=== PATIENT | female | born 1965 | race Caucasian/White ===

== ENCOUNTER 2017-11-03 06:57 | Day surgery (SDC) | payer MEDICARE, OTHER ==
[~2017-11-03 06:57] MED LIST: Lactated Ringers 1,000 ML IV SCH; Lidocaine 1%/Sod Bicarbonate in NS 8.4% 1 ML Syringe IDERM PRN; Sodium Chloride 0.9% 10 ML Syringe FLUSH PRN
[2017-11-03] MEDS ORDERED: Ropivacaine 0.5% 5 MG/ML 30 ML SDV ONE (07:10)
[2017-11-03] MEDS ORDERED: Lidocaine 1% 4 ML ONE ×2 (07:10→07:56)
[2017-11-03] MEDS ORDERED: EPINEPHrine 1 MG/ML SDV ONE (07:10)
[2017-11-03] MEDS ORDERED: Triamcinolone Acetonide 40 MG/ML 1 ML MDV ONE (07:18)
[2017-11-03] MEDS ORDERED: Bupivacaine 0.25% 30 ML SDV ONE (07:19)
--- NOTE | 2017-11-03 07:33 | PCM.PREANE ---
Preanesthetic Assessment - Anesthesia/Transfusion/Family Hx Anesthesia History: Prior Anesthesia Without Reaction Family History of Anesthesia Reaction: No Transfusion History: No Prior Transfusion(s) Intubation History: Unknown - Review of Systems General: No Symptoms Pulmonary: No Symptoms (Former smoker quit in 2007) Cardiovascular: No Symptoms (History of HTN), Palpitations (with hypoglycemia) Gastrointestinal: No Symptoms Neurological: No Symptoms, Numbness (right hand with right shoulder pain) Other: Reports: None, Diabetes (AM blood sugar at [id number]/insulin pump noted and operating) - Physical Assessment NPO Status Date: 11/02/17 NPO Status Time: 18:00 Pulse: 68 O2 Sat by Pulse Oximetry: 98 Respiratory Rate: 16 Blood Pressure: 107/70 Temperature: 37.1 C Height: 1.63 m Weight: 64 kg ASA Class: 2 Mental Status: Alert & Oriented x3 Airway Class: Mallampati = 3 Dentition: Reports: Partial (upper) Thyro-Mental Finger Breadths: 3 Mouth Opening Finger Breadths: 3 ROM/Head Extension: Full Lungs: Clear to Auscultation, Normal Respiratory Effort Cardiovascular: Regular Rate, Regular Rhythm, No Murmurs - Lab Values: Lab values reviewed and noted and within acceptable ranges to proceed with scheduled procedure. - Imaging/EKG Impressions: EKG: SR rate= 69 - Allergies Allergies/Adverse Reactions: Allergies Allergy/AdvReac Type Severity Reaction Status Date / Time adhesive Allergy Redness Verified 11/02/17 15:34 bupropion [From Zyban] Allergy Hives Verified 11/02/17 15:34 codeine Allergy Itching Verified 11/02/17 15:34 gabapentin [From Neurontin] Allergy Confusion Verified 11/02/17 15:34 tramadol Allergy Nausea and Verified 11/02/17 15:34 Vomiting dyes Allergy Anaphylactic Uncoded 11/02/17 15:34 Shock - Anesthesia Plan Pre-Op Medication Ordered: None - Acknowledgements Anesthesia Type Planned: General Anesthesia (Right interscalene block under US guidance for post operative pain control requested by Dr. Alarcon.), MAC Pt an Appropriate Candidate for the Planned Anesthesia: Yes Alternatives and Risks of Anesthesia Discussed w Pt/Guardian: Yes Pt/Guardian Understands and Agrees with Anesthesia Plan: Yes PreAnesthesia Questionnaire HEENT History: Reports: Impaired Vision, Other (See Below) Other HEENT History: glasses Cardiovascular History: Reports: None Respiratory History: Reports: None Gastrointestinal History: Reports: None Genitourinary History: Reports: None EGG SORTER History: Reports: None Musculoskeletal History: Reports: Other (See Below) Other Musculoskeletal History: left shoulder pain, frozen, ganglion cyst Neurological History: Reports: None Psychiatric History: Reports: None Endocrine/Metabolic History: Reports: Diabetes, Type I Hematologic History: Reports: None Immunologic History: Reports: None Oncologic (Cancer) History: Reports: None Dermatologic History: Reports: None - Past Surgical History Head Surgeries/Procedures: Reports: None Cardiovascular Surgical History: Reports: None Respiratory Surgical History: Reports: None GI Surgical History: Reports: Colonoscopy, EGD Female Surgical History: Reports: Breast Implant, Hysterectomy Male Surgical History: Reports: None Endocrine Surgical History: Reports: None Neurological Surgical History: Reports: None Musculoskeletal Surgical History: Reports: None Oncologic Surgical History: Reports: None Dermatological Surgical History: Reports: None - SUBSTANCE USE Smoking Status *Q: Former Smoker Recreational Drug Use History: No - HOME MEDS Home Medications: Home Meds Aspirin 81 mg PO DAILY 11/02/17 [History] Cetirizine [ZyrTEC] 10 mg PO DAILY 11/02/17 [History] Insulin Aspart [NovoLOG] 1 dose SQ ASDIRECTED 11/02/17 [History] Lisinopril 40 mg PO DAILY 11/02/17 [History] Acetaminophen/HYDROcodone [[place] 325-5 MG] 1 - 2 tab PO Q6H PRN #40 tablet 11/03 [Rx] - CURRENT (IN HOUSE) MEDS Current Meds: Current Medications Epinephrine HCl (Adrenalin) 3 mg IV ONETIME ONE Stop: 11/03/17 08:01 Lactated Ringer's (Ringers, Lactated) 1,000 mls @ 125 mls/hr IV ASDIRECTED MANASA Lidocaine/Sodium Bicarbonate (Buffered Lidocaine 1% In Ns 8.4%) 0.25 ml IDERM ONETIME PRN PRN Reason: Prior to IV Start Sodium Chloride (Saline Flush) 10 ml FLUSH ASDIRECTED PRN PRN Reason: Keep Vein Open Discontinued Medications Bupivacaine HCl (Marcaine 0.25%) Confirm Administered Dose 30 ml .ROUTE .STK- MED ONE Stop: 11/03/17 07:20 Epinephrine HCl (Adrenalin) Confirm Administered Dose 1 mg .ROUTE .STK-MED ONE Stop: 11/03/17 07:11 Lidocaine HCl (Xylocaine-Mpf 1%) Confirm Administered Dose 4 mls @ as directed .ROUTE .STK-MED ONE Stop: 11/03/17 07:11 Ropivacaine (Naropin 0.5%) Confirm Administered Dose 30 ml .ROUTE .STK-MED ONE Stop: 11/03/17 07:11 Triamcinolone Acetonide (Kenalog-40) Confirm Administered Dose 80 mg .ROUTE .STK -MED ONE Stop: 11/03/17 07:19
[2017-11-03] MEDS ORDERED: Propofol 200 MG/20 ML SDV ONE (07:56)
[2017-11-03] MEDS ORDERED: fentaNYL 100 MCG/2 ML SDV ONE (07:57)
[2017-11-03] MEDS ORDERED: Midazolam 1 MG/ML 2 ML SDV ONE (07:57)
[2017-11-03] MEDS ORDERED: EPINEPHrine 1 MG/ML 30 ML MDV IV ONE (08:00)
[2017-11-03] MEDS ORDERED: Ketamine 500 mg/10 ML MDV ONE (09:02)
--- NOTE | 2017-11-03 09:23 | PCM48HPAN ---
Post Anesthesia Note - EVALUATION WITHIN 48HRS OF ANESTHETIC Vital Signs in Normal Range: Yes Patient Participated in Evaluation: Yes Respiratory Function Stable: Yes Airway Patent: Yes Cardiovascular Function Stable: Yes Hydration Status Stable: Yes Pain Control Satisfactory: Yes Nausea and Vomiting Control Satisfactory: Yes Mental Status Recovered: Yes Pulse Rate: 79 SaO2: 97 Resp Rate: 12 Temperature: 37.1 C Blood Pressure: 136/74 - COMMENTS/OBSERVATIONS Free Text/Narrative:: no anesthesia complications noted
--- NOTE | 2017-11-03 12:53 | PCM.SN ---
- Free Text/Narrative Note: Anesthesia Note: (Right Interscalene Block Note) Date: 11/03/2017 Time Out: 804 Start: 804 Stop: 829 Surgical Procedure: Right Shoulder Manipulation with Steroid Injection Diagnosis Right Shoulder Adhesive Capsulitis Current Procedure: Right interscalene block under US guidance for postoperative pain control requested by Dr. Alarcon. Patient chart reviewed, risk/benefits discussed with patient, consent obtained. Patient positioned supine, monitors/alarms on, oxygen placed via nasal cannula at 2 LPM. IV sedation administered: (Please refer to Nursing notes for times of versed and fentanyl administration.) Right shoulder prepped with two chloropreps. Sterile drapes placed with aseptic technique noted. Under US guidance, right subclavian artery visualized along with the right brachial plexus. Plexus followed up to C6 cricoid level, and area localized with 2mls of 1% lidocaine. 22gauge 2 inch stimiplex needle advanced under US with 0.6mV with stimulation of biceps noted. Good stimulation noted with decreased voltage and absent at 0.2mVs. 1ml of Normal Saline injected with loss of stimulation noted to confirm needle not placed intraneurally. Incremental dosing of 5mls with negative aspiration noted prior to each injection of 0.5% ropivacaine with 1:200,000 epinephrine. Total volume=30mls. Please refer to nurses noted for vital signs. Abby De La Rosa CRNA
--- NOTE | 2017-11-05 08:47 | PCM.OPNOTE ---
- General Post-Op/Procedure Note Date of Surgery/Procedure: 11/03/17 Operative Procedure(s): manipulation under anesthesia of right shoulder with intra-articular glenohumeral corticosteroid injection Pre Op Diagnosis: adhesive capsulitis right shoulder Post-Op Diagnosis: Same Anesthesia Technique: MAC, Regional Block Primary Surgeon: Jose Alarcon Anesthesia Provider: Iker Key Reporting Specialist: Shantal Ruiz EBL in mLs: 0 Complications: None Condition: Good
--- NOTE | 2017-11-05 09:34 | OR ---
DATE OF OPERATION: 11/03/2017 SURGEON: Jose Alarcon MD OPERATION PERFORMED: Manipulation under anesthesia of the right shoulder with intra-articular glenohumeral corticosteroid injection. PREOPERATIVE DIAGNOSIS: Adhesive capsulitis, right shoulder. POSTOPERATIVE DIAGNOSIS: Adhesive capsulitis, right shoulder. ANESTHESIA: MAC with regional interscalene block. ANESTHESIA PROVIDER: Iker Key CRNA. DRUPAL WEB DEVELOPER: None. COMPLICATIONS: None. ESTIMATED BLOOD LOSS: Not applicable. CONDITION: Stable. DESCRIPTION OF PROCEDURE: The patient was identified in the preop holding area. Proper site was marked and identified by the surgeon. The patient was taken back to the operating theater where after adequate anesthesia, preliminary results showed only roughly 10 degrees of external rotation. At 90 degrees of abduction, she did have 140 degrees of forward elevation. At this time, shoulder was manipulated, and by the end of manipulation, the patient had 70 degrees of external rotation, 180 degrees of abduction and forward flexion. At this time, under sterile technique, 2 mL of 40 mg Kenalog and 4 mL of 0.25% Marcaine were injected to the right glenohumeral joint. The patient tolerated the procedure well and was sent to the PACU in stable condition. MMODAL /[id number]
== END 2017-11-03 10:30 | disposition home or self-care (01) ==
LOC: JD.SDS 06:57
PROVIDERS: ATTEND Orthopaedic Surgery
DX: M75.01 Adhesive capsulitis of right shoulder (principal); E11.9 Type 2 diabetes mellitus without complications; I10 Essential (primary) hypertension; Z88.5 Allergy status to narcotic agent; Z88.8 Allergy status to other drugs, medicaments and biological substances; Z91.048 Other nonmedicinal substance allergy status; Z87.891 Personal history of nicotine dependence
CPT/HCPCS: 93005; J0171; J2001; J2250; J2704; J2795; J3010; J3301; J3490; J7120

== ENCOUNTER 2019-06-06 09:51 | Day surgery (SDC) | payer BC, MEDICARE ==
[2019-06-06] MEDS ORDERED: Ondansetron 4 MG/2 ML SDV IVPUSH PRN (10:12)
--- NOTE | 2019-06-06 10:20 | PCM.PREANE ---
Preanesthetic Assessment - Procedure Proposed Procedure: EGD with colonoscopy - Anesthesia/Transfusion/Family Hx Anesthesia History: Prior Anesthesia Without Reaction Family History of Anesthesia Reaction: No Transfusion History: No Prior Transfusion(s) Intubation History: Unknown Additional History: No previous difficulties with anesthesia except PONV. No previous difficulties with intubation that are known. - Review of Systems General: No Symptoms Pulmonary: No Symptoms Cardiovascular: No Symptoms Gastrointestinal: No Symptoms Neurological: No Symptoms Other: Reports: None - Physical Assessment NPO Status Date: 06/06/19 NPO Status Time: 02:00 (Needed a carb loaded drink to prevent hypoglycemia) Vital Signs: Taken by RN on admission Height: 64 ft Weight: 61.68 kg ASA Class: 2 Mental Status: Alert & Oriented x3 Airway Class: Mallampati = 2 Dentition: Reports: Normal Dentition, Edentulous (upper plate) Thyro-Mental Finger Breadths: 3 Mouth Opening Finger Breadths: 3 ROM/Head Extension: Full Lungs: Clear to Auscultation, Normal Respiratory Effort Cardiovascular: Regular Rate, Regular Rhythm - Allergies Allergies/Adverse Reactions: Allergies Allergy/AdvReac Type Severity Reaction Status Date / Time bupropion [From Zyban] Allergy Hives Verified 06/05/19 12:06 codeine Allergy Itching Verified 06/05/19 12:06 gabapentin [From Neurontin] Allergy Confusion Verified 06/05/19 12:06 Iodinated Contrast Media Allergy Anaphylactic Verified 06/05/19 12:06 Shock Cyubchy-Gmk-Ypk Reductase Allergy Muscle Verified 06/05/19 12:06 Inhibitor Aches tramadol Allergy Nausea and Verified 06/05/19 12:06 Vomiting - Acknowledgements Anesthesia Type Planned: MAC Pt an Appropriate Candidate for the Planned Anesthesia: Yes Alternatives and Risks of Anesthesia Discussed w Pt/Guardian: Yes Pt/Guardian Understands and Agrees with Anesthesia Plan: Yes PreAnesthesia Questionnaire HEENT History: Reports: Impaired Vision, Other (See Below) Other HEENT History: glasses Cardiovascular History: Reports: Hypertension Respiratory History: Reports: None Gastrointestinal History: Reports: None, Chronic Diarrhea Genitourinary History: Reports: None BLACKJACK PIT BOSS History: Reports: None Musculoskeletal History: Reports: Other (See Below) Other Musculoskeletal History: ganglion cyst Neurological History: Reports: None Psychiatric History: Reports: None Endocrine/Metabolic History: Reports: Diabetes, Type I Hematologic History: Reports: None Immunologic History: Reports: None Oncologic (Cancer) History: Reports: None Dermatologic History: Reports: None - Past Surgical History Head Surgeries/Procedures: Reports: None Cardiovascular Surgical History: Reports: None Respiratory Surgical History: Reports: None GI Surgical History: Reports: Colonoscopy, EGD Female Surgical History: Reports: Breast Implant, Hysterectomy Male Surgical History: Reports: None Endocrine Surgical History: Reports: None Neurological Surgical History: Reports: None Musculoskeletal Surgical History: Reports: Other (See Below) Other Musculoskeletal Surgeries/Procedures:: bilateral shoulder manipulations for "frozen shoulders" Oncologic Surgical History: Reports: None Dermatological Surgical History: Reports: None - SUBSTANCE USE Smoking Status *Q: Former Smoker Recreational Drug Use History: No - HOME MEDS Home Medications: Home Meds Aspirin 81 mg PO DAILY 11/02/17 [History] Cetirizine [ZyrTEC] 10 mg PO DAILY 11/02/17 [History] Lisinopril 40 mg PO DAILY 11/02/17 [History] Colestipol [Colestipol HCl] 2 g PO BID 06/05/19 [History] Insulin Aspart (Niacinamide) [Fiasp Penfill 100 Unit/ml Cart] 1 dose SQ TID PRN 06/05/19 [History] Insulin Degludec [Tresiba] 12 units SQ QAM 06/05/19 [History] Lactobacillus Combination No.4 [Probiotic] 1 cap PO DAILY 06/05/19 [History] Melatonin 10 mg PO BEDTIME 06/05/19 [History] Red Yeast Rice 600 mg PO DAILY 06/05/19 [History] - CURRENT (IN HOUSE) MEDS Current Meds: Current Medications Lactated Ringer's (Ringers, Lactated) 1,000 mls @ 125 mls/hr IV ASDIRECTED MANASA Stop: 06/06/19 23:00 Lidocaine/Sodium Bicarbonate (Buffered Lidocaine 1% In Ns 8.4%) 0.25 ml IDERM ONETIME PRN PRN Reason: Prior to IV Start Stop: 06/06/19 18:00 Ondansetron HCl (Zofran) 4 mg IVPUSH ONETIME PRN PRN Reason: Nausea/Vomiting Stop: 06/06/19 14:00 Sodium Chloride (Saline Flush) 10 ml FLUSH ASDIRECTED PRN PRN Reason: Keep Vein Open Stop: 06/06/19 18:00
[2019-06-06] MEDS ORDERED: fentaNYL 100 MCG/2 ML SDV ONE (10:42)
[2019-06-06] MEDS ORDERED: Propofol 200 MG/20 ML SDV ONE ×2 (10:42→11:23)
[2019-06-06] MEDS ORDERED: Ketamine 500 mg/10 ML MDV ONE (10:42)
[2019-06-06] MEDS ORDERED: Lidocaine 1% 4 ML ONE (10:42)
--- NOTE | 2019-06-06 11:43 | PCM.OPNOTE ---
- General Post-Op/Procedure Note Date of Surgery/Procedure: 06/06/19 Operative Procedure(s): EGD and colonoscopy Findings: 1. Gastritis 2. Duodenitis 3. Duodenal polyp 4. Diffuse colitis Pre Op Diagnosis: abdominal pain and diarrhea Post-Op Diagnosis: same Anesthesia Technique: ELICIA Primary Surgeon: Nadine Perez Anesthesia Provider: Franky Rojas Pathology: 1. Duodenal polyp biopsy 2. Duodenitis biopsy 3. Gastric antrum for H. pylori 4. Ascending colon biopsy 5. Transverse colon biopsy 6. Descending colon biopsy 7. Sigmoid colon biopsy 8. Rectal biopsy Fluid Replacement, Intraop: 800 EBL in mLs: 0 Complications: None apparent Condition: Good
--- NOTE | 2019-06-06 11:45 | PCM.POSTAN ---
POST ANESTHESIA ASSESSMENT - MENTAL STATUS Mental Status: Somnolent - VITAL SIGNS Vital Signs: Last Vital Signs Temp 36.7 C 06/06/19 09:55 Pulse 67 06/06/19 09:55 Resp 16 06/06/19 09:55 BP 124/82 06/06/19 09:55 Pulse Ox 98 06/06/19 09:55 - RESPIRATORY Respiratory Status: Respiratory Rate WNL, Airway Patent, O2 Saturation Stable - CARDIOVASCULAR CV Status: Pulse Rate WNL, Blood Pressure Stable - GASTROINTESTINAL GI Status: No Symptoms - PAIN Free Text/Narrative:: Unable to assess at this time. Responsive to painful stimuli. - POST OP HYDRATION Hydration Status: Adequate & Stable - OBSERVATIONS Free Text/Narrative:: Routine MAC. Transfer to recovery. Handoff to RN. VSS, SV, somnolent, but responsive to painful stimuli. No concerns at this time.
[2019-06-06] MEDS ORDERED: Midazolam 1 MG/ML 2 ML SDV ONE (11:57)
--- NOTE | 2019-06-06 11:58 | PCM.PRNOTE ---
- Free Text/Narrative Note: Operative Report Date of Procedure: June 06, 2019 Pre Op Diagnosis: Abdominal pain and diarrhea Post-Op Diagnosis: Same Operative Procedures: 1. EGD with biopsy 2. Colonoscopy to the cecum with biopsy Primary Surgeon: Nadine Perez MD Anesthesia Provider: Nicola Rojas CRNA Anesthesia Technique: MAC IV Fluid Replacement, Intraop: 800cc crystalloid Output, Urine Amount: 0cc EBL in mLs: 0cc Findings: 1. Gastritis 2. Duodenitis 3. Duodenal polyp 4. Diffuse colitis Specimens: 1. Duodenal polyp biopsy 2. Duodenitis biopsy 3. Gastric antrum for H. pylori 4. Ascending colon biopsy 5. Transverse colon biopsy 6. Descending colon biopsy 7. Sigmoid colon biopsy 8. Rectal biopsy Drain/Tubes: None Indication: The patient is a 54-year-old lady who presented to the clinic with abdominal pain and diarrhea. The patient reported symptoms of frequent diarrhea throughout the day and abdominal pain after eating. She had stool studies completed which were unrevealing for any etiology. The patient was consented for a diagnostic EGD and colonoscopy. Risks of bleeding, and perforation were discussed, and the patient agreed to the risks and wished to proceed. Description of the procedure: The patient was taken back to the endoscopy suite, and placed in the left lateral decubitus position. Local anesthetic to the oropharynx was administered , and a bite block was placed. The patient was sedated with MAC anesthesia. The Olympus video endoscope was inserted into the oropharynx and guided under direct vision into the esophagus, stomach, and duodenum. The gastric antrum was inspected and cold biopsy forceps were used to take tissue samples for H. pylori. The duodenal bulb and second portion of the duodenum showed evidence of inflammation. There was a small polyp measuring approximate 4 mm and the second portion of the duodenum, there was overlying redundant mucosa. Cold biopsy forceps ere used to take a biopsy of this tissue. The scope was withdrawn to the stomach and retroflexed. There was bilious fluid residual in the stomach which was suctioned. He was gastritis in the fundus and cardia with stigmata of recent bleeding No erosions or ulcers were noted. The scope was withdrawn to the esophagus. No Barretts esophagus changes were noted. The endoscope was then withdrawn Next, anorectal examination was performed. No lesions, masses or hemorrhoids were noted externally or on palpation. The scope was placed into the rectum and advanced to cecum. Upon reaching the cecum, and the patients cecum was entered. There was moderate tortuosity of the colon wearing external abdominal pressure to reach the cecum. The ileocecal valve was well visualized and the appendiceal orifice identified. At this point, the scope was slowly withdrawn, paying attention to the mucosa. The patient had excellent bowel prep, 95% of the mucosa was visible. Diffuse colitis marked by areas of small petechia, erythema and flattening of the mucosal surface from edema was noted throughout the colon. Random colon biopsies were taken with cold biopsy forceps in the ascending colon, transverse colon, descending colon, sigmoid colon, and rectum. In the rectum, scope was retroflexed and some normal appearing hemorrhoidal tissue was noted. The scope was placed back in the lumen and excess air was aspirated. The scope was removed. The patient tolerated the procedure very well. Complications: None apparent Condition: The patient was transported to PACU in stable condition. Nadine Perez MD General Surgery
--- NOTE | 2019-06-07 09:45 | PCM48HPAN ---
Post Anesthesia Note - EVALUATION WITHIN 48HRS OF ANESTHETIC Vital Signs in Normal Range: Yes Patient Participated in Evaluation: Yes Respiratory Function Stable: Yes Airway Patent: Yes Cardiovascular Function Stable: Yes Hydration Status Stable: Yes Pain Control Satisfactory: Yes Nausea and Vomiting Control Satisfactory: Yes Mental Status Recovered: Yes Vital Signs: Last Vital Signs Temp 36.1 C 06/06/19 13:20 Pulse 63 06/06/19 13:20 Resp 16 06/06/19 13:20 BP 126/69 06/06/19 13:20 Pulse Ox 98 06/06/19 13:20 - COMMENTS/OBSERVATIONS Free Text/Narrative:: Patient had dysphoria upon initial emergence from MAC anesthetic. Administered 2 mg divided doses of midazolam to make sure she remained amnestic and allowed her to wake-up a second time. This time she emerged much more pleasantly. Unsure which agent(s) caused this. Typically, low dose ketamine doesn't cause this, but it's certainly possible, but so too are any of the agents we used.
== END 2019-06-06 13:35 | disposition home or self-care (01) ==
LOC: JD.SDS 09:51
PROVIDERS: ATTEND Surgery
DX: K52.832 Lymphocytic colitis (principal); K29.80 Duodenitis without bleeding; K29.50 Unspecified chronic gastritis without bleeding; B96.81 Helicobacter pylori [H. pylori] as the cause of diseases classified elsewhere; E13.9 Other specified diabetes mellitus without complications; Z91.041 Radiographic dye allergy status; Z79.899 Other long term (current) drug therapy; Z79.82 Long term (current) use of aspirin; Z79.4 Long term (current) use of insulin; Z88.8 Allergy status to other drugs, medicaments and biological substances; Z88.5 Allergy status to narcotic agent; Z87.891 Personal history of nicotine dependence
CPT/HCPCS: 00813; 82962; J2001; J2704; J3010; J7120

== ENCOUNTER 2019-09-24 12:07 | Emergency (ER) | payer BC, MEDICARE ==
[2019-09-24] MEDS ORDERED: Ondansetron 4 MG/2 ML SDV IVPUSH ONE (12:55)
[2019-09-24] MEDS ORDERED: HYDROmorphone 0.5 MG/0.5 ML Syringe IVPUSH ONE (12:55)
[2019-09-24] MEDS ORDERED: Tamsulosin 0.4 MG Cap.ER PO ONE (12:55)
[2019-09-24] MEDS ORDERED: Ketorolac 30 MG/ML SDV IVPUSH STA (12:55)
[2019-09-24] MEDS ORDERED: Sodium Chloride 0.9% 1,000 ML IV SCH (13:00)
--- NOTE | 2019-09-24 13:01 | EDM.PDOC ---
ED HPI GENERAL MEDICAL PROBLEM - General Chief Complaint: Genitourinary Problem Stated Complaint: LEFT SIDE BACK PAIN/HIGH BP Time Seen by Provider: 09/24/19 12:31 Source of Information: Reports: Patient History Limitations: Reports: No Limitations - History of Present Illness INITIAL COMMENTS - FREE TEXT/NARRATIVE: Mrs. Woody is a pleasant 54-year-old woman with a past medical history significant for type 1 diabetes and untreated dyslipidemia, who now presents to the ED stating that she developed dysuria with urinary frequency about 2 weeks ago. Her symptoms are similar to a UTI that she has had in the past. Her blood pressure has also been elevated for couple of weeks. She states that she was seen by her PCP last week, where a urinalysis was reportedly negative. Metoprolol was added to her usual lisinopril, however, her BP has remained elevated. She then developed left flank pain that radiates to her left lower quadrant this morning. She is unable to describe the character of the pain, other than "it hurts". She states that it is constant, although she occasionally gets a wave of increased pain that lasts a few minutes. She has not identified any modifiers. No prior similar left flank/left lower quadrant pain. The patient states that she has had slight nausea with the pain, although no recent vomiting. She denies recent fever, chills, sore throat, ear pain, nasal or sinus congestion, cough, dyspnea, chest pain, palpitations, constipation, diarrhea, recent weight gain or weight loss, recent bloody bowel movements or black bowel movements, recent joint aches, headaches, or rashes. Here in the ED, the patient's initial BP is found to be elevated at 181/96, otherwise, she is hemodynamically stable, afebrile, saturating 100% on room air. The patient states that her blood glucoses are usually in the 200s, however, over the past couple of weeks they have been into the 300s. The patient's PCP is Deanne Snider NP. Her Orthopedic Surgeon is Dr. Jose Alarcon. Left Flank Pain Score (Numeric/FACES): 6 - Related Data Allergies Allergy/AdvReac Type Severity Reaction Status Date / Time bupropion [From Zyban] Allergy Severe Hives Verified 09/24/19 12:36 codeine Allergy Severe Itching Verified 09/24/19 12:36 Iodinated Contrast Media Allergy Severe Anaphylactic Verified 09/24/19 12:36 Shock gabapentin [From Neurontin] AdvReac Severe Confusion Verified 09/24/19 12:36 Dhoozbs-[facility]-Wci Reductase AdvReac Severe Muscle Verified 09/24/19 12:36 Inhibitor Aches tramadol AdvReac Severe Nausea and Verified 09/24/19 12:36 Vomiting Home Meds: Home Meds Aspirin 81 mg PO DAILY 11/02/17 [History] Cetirizine [ZyrTEC] 10 mg PO DAILY 11/02/17 [History] Lisinopril 40 mg PO DAILY 11/02/17 [History] Colestipol [Colestipol HCl] 2 g PO BID 06/05/19 [History] Insulin Aspart (Niacinamide) [Fiasp Penfill 100 Unit/ml Cart] 1 dose SQ TID PRN 06/05/19 [History] Insulin Degludec [Tresiba] 12 units SQ QAM 06/05/19 [History] Lactobacillus Combination No.4 [Probiotic] 1 cap PO DAILY 06/05/19 [History] Melatonin 10 mg PO BEDTIME 06/05/19 [History] Red Yeast Rice 600 mg PO DAILY 06/05/19 [History] Acetaminophen/HYDROcodone [Greenview 325-5 MG] 1 - 2 tab PO Q6H PRN #20 tablet 09/23 [Rx] Ondansetron [Zofran ODT] 1 tab PO Q8H PRN #10 tab.dis 09/24/19 [Rx] levoFLOXacin [Levaquin] 1 tab PO QPM #6 tab 09/24/19 [Rx] Past Medical History HEENT History: Reports: Impaired Vision Other HEENT History: wears glasses Cardiovascular History: Reports: High Cholesterol (untreated), Hypertension Endocrine/Metabolic History: Reports: Diabetes, Type I - Past Surgical History HEENT Surgical History: Reports: Oral Surgery (wisdom teeth extraction) GI Surgical History: Reports: Colonoscopy (x 2), EGD (x 2) Female Surgical History: Reports: Breast Implant, D&C (x 1), Hysterectomy ( partial), Tubal Ligation Musculoskeletal Surgical History: Reports: Ganglion Cyst (excised from left wrist & right foot), Shoulder Surgery (bilateral manipulaton for adhesive capsulitis) Social & Family History - Tobacco Use Smoking Status *Q: Former Smoker Years of Tobacco use: 25 Packs/Tins Daily: 1.5 Month/Year Tobacco Last Used: Quit 2007 Second Hand Smoke Exposure: No - Caffeine Use Caffeine Use: Reports: Coffee - Alcohol Use Alcohol Use History: No - Recreational Drug Use Recreational Drug Use: No - Living Situation & Occupation Living situation: Reports: , with Spouse Occupation: Unemployed ED ROS GENERAL - Review of Systems Review Of Systems: Comprehensive ROS is negative, except as noted in HPI. ED EXAM, RENAL/ - Physical Exam Exam: See Below Exam Limited By: No Limitations General Appearance: Alert, WD/WN, No Apparent Distress Eye Exam: Bilateral Eye: EOMI, Normal Inspection Ears: Normal External Exam, Hearing Grossly Normal Nose: Normal Inspection Throat/Mouth: Normal Inspection, Normal Lips, Normal Voice, No Airway Compromise Head: Atraumatic, Normocephalic Neck: Normal Inspection, Full Range of Motion Respiratory/Chest: No Respiratory Distress, Lungs Clear, Normal Breath Sounds, No Accessory Muscle Use Cardiovascular: Normal Peripheral Pulses, Regular Rate, Rhythm, No Edema, No Gallop, No JVD, No Murmur, No Rub GI/Abdominal: Normal Bowel Sounds, Soft, No Organomegaly, No Distention, No Abnormal Bruit, No Mass, Tender (Left lower quadrant, but unclear if truly tender in the left lower quadrant versus identifying pain in the left lower quadrant) (Female) Exam: Deferred Rectal (Female) Exam: Deferred Back Exam: Normal Inspection, Full Range of Motion, CVA Tenderness (L). No: CVA Tenderness (R) Extremities: Normal Inspection, Normal Range of Motion, No Pedal Edema, Normal Capillary Refill Neurological: Alert, Oriented, Normal Cognition, No Motor/Sensory Deficits Psychiatric: Normal Affect Skin Exam: Warm, Dry, Intact, Normal Color, No Rash Course - Vital Signs Last Recorded V/S: Last Vital Signs Temp 36.8 C 09/24/19 12:32 Pulse 73 09/24/19 12:32 Resp 16 09/24/19 12:32 BP 181/96 H 09/24/19 12:32 Pulse Ox 100 09/24/19 12:32 - Orders/Labs/Meds Orders: Active Orders 24 hr Category Date Time Status Strain Urine [RC] ASDIRECTED Care 09/24/19 13:22 Active CULTURE URINE [RM] Stat Lab 09/24/19 12:20 Received Sodium Chloride 0.9% [Normal Saline] 1,000 ml Med 09/24/19 13:00 Active IV ASDIRECTED Medication Orders Sodium Chloride (Normal Saline) 1,000 mls @ 150 mls/hr IV ASDIRECTED MANASA Last Admin: 09/24/19 13:21 Dose: 150 mls/hr Labs: Laboratory Tests 09/24/19 Range/Units 12:20 Urine Color Light yellow (Yellow) Urine Appearance Clear (Clear) Urine pH 8.0 (5.0-8.0) Ur Specific Chrisney 1.020 (1.005-1.030) Urine Protein Negative (Negative) Urine Glucose (UA) Negative (Negative) Urine Ketones Negative (Negative) Urine Occult Blood 3+ H (Negative) Urine Nitrite Negative (Negative) Urine Bilirubin Negative (Negative) Urine Urobilinogen 0.2 (0.2-1.0) Ur Leukocyte Esterase 3+ H (Negative) Urine RBC 20-30 H (0-5) /hpf Urine WBC 20-30 H (0-5) /hpf Ur Epithelial Cells Not seen (0-5) /hpf Urine Bacteria Few (FEW) /hpf Urine Mucus Not seen (FEW) /hpf Meds: Medications Generic Name Dose Route Start Last Admin Trade Name Freq PRN Reason Stop Dose Admin Sodium Chloride 1,000 mls @ 150 mls/hr 09/24/19 13:00 09/24/19 13:21 Normal Saline IV 150 mls/hr ASDIRECTED MANASA Administration Discontinued Medications Generic Name Dose Route Start Last Admin Trade Name Freq PRN Reason Stop Dose Admin Hydromorphone HCl 0.5 mg 09/24/19 12:55 09/24/19 13:22 Dilaudid IVPUSH 09/24/19 12:56 0.5 mg ONETIME ONE Administration Ketorolac Tromethamine 30 mg 09/24/19 12:55 09/24/19 13:21 Toradol IVPUSH 09/24/19 12:56 30 mg ONETIME STA Administration Ondansetron HCl 4 mg 09/24/19 12:55 09/24/19 13:21 Zofran IVPUSH 09/24/19 12:56 4 mg ONETIME ONE Administration Tamsulosin HCl 0.4 mg 09/24/19 12:55 09/24/19 13:23 Flomax PO 09/24/19 12:56 0.4 mg ONETIME ONE Administration - Re-Assessments/Exams Free Text/Narrative Re-Assessment/Exam: 09/24/19 12:56 The patient's history and physical examination are most consistent with a left ureterolith. The patient has already provided a urine sample, although she tells me that she urinated directly into the cup, and that the sample was not a midstream urine, so we will see if it is contaminated or not. I have ordered a CT of the abdomen and pelvis without contrast to evaluate for a stone. In the meantime, the patient will be given IV Dilaudid, IV Toradol, oral Flomax, IV Zofran, and IV fluid. 09/24/19 13:17 The patient's urinalysis is remarkable for 3+ occult blood with 20-30 RBCs, 3+ leukocyte esterase with 20-30 WBCs, nitrite negative with few bacteria, and no squamous epithelial cells. The patient's urinalysis is consistent with a ureterolith, and not really consistent with a UTI, unless the CT of the abdomen pelvis is negative for stone. A urine culture has been ordered. 09/24/19 13:36 CT of the abdomen and pelvis without contrast as read by Dr. Sawyer as: 1. Minimal 1 mm nonobstructing stone within the right kidney. No ureteral dilatation or ureteral calculi are seen. 2. Other normal findings as noted above. Nothing acute is appreciated on noncontrast CT study of the abdomen and pelvis. Based on the above reading, I will have to find that the patient has pyelonephritis. I will therefore have to treat her with a fluoroquinolone. 09/24/19 13:46 Test results discussed with the patient. The patient has no preference as to Levaquin or ciprofloxacin, therefore I will start her on oral Levaquin here, and provide her a prescription to complete a 7-day course. She will also be discharged home with prescriptions for both Greenview and Zofran. I would like her to follow-up with her PCP in 3 days to check on the urine culture results. Departure - Departure Time of Disposition: 13:47 Disposition: Home, Self-Care 01 Condition: Good Clinical Impression: Pyelonephritis - Discharge Information *PRESCRIPTION DRUG MONITORING PROGRAM REVIEWED*: Not Applicable *COPY OF PRESCRIPTION DRUG MONITORING REPORT IN PATIENT MELLO: Not Applicable Prescriptions: Acetaminophen/HYDROcodone [Greenview 325-5 MG] 1 - 2 tab PO Q6H PRN #20 tablet PRN Reason: Pain (Severe 7-10) levoFLOXacin [Levaquin] 1 tab PO QPM #6 tab Ondansetron [Zofran ODT] 1 tab PO Q8H PRN #10 tab.dis PRN Reason: Nausea/Vomiting Referrals: Deanne Snider NP [Primary Care Provider] - Jose Alarcon MD [Physician] - Forms: ED Department Discharge Additional Instructions: You were seen in the emergency room for 2 weeks of painful urination with the need to urinate frequently, followed by left flank pain radiating around to your lower left abdomen this morning. Work-up in the ER included a urinalysis and a CT scan of your abdomen and pelvis without contrast. Your urinalysis found both blood and white blood cells in your urine. A sample of your urine has been sent for culture. Your CT scan did not show evidence of a kidney stone. Based on your history, physical exam, and ER tests, your symptoms are most likely due to a urinary tract infection that has gone to your left kidney, a condition known as pyelonephritis. You have been started on the antibiotic Levaquin. You have been sent home with prescriptions for Levaquin, the opioid pain reliever Greenview, and the anti-nausea medicine Zofran. Take 1 tablet of Levaquin every afternoon, starting tomorrow afternoon, Tuesday , 09/25/2019, as prescribed. Finish the entire prescription unless told otherwise by a doctor. We recommend that you take [id number] ibuprofen, 3 tablets (600 mg) 8 hours, with food, [id number], as needed for discomfort. You may take 1 to 2 tablets of Greenview up to every 6 hours, as needed for pain not relieved by ibuprofen. If you take Greenview, do not drive for 12 hours afterwards. Greenview may cause constipation, so consider taking a stool softener. You may dissolve 1 tablet of Zofran on your tongue up to every 8 hours, as needed for nausea/vomiting. Stay adequately hydrated. Follow-up with your PCP, Deanne Snider NP, on afternoon, 09/27/2019, to check on your urine culture results, to make sure that you are on the correct antibiotic. If any other problems, please do not hesitate to return to the ER. Sepsis Event Note - Evaluation Sepsis Screening Result: No Definite Risk - Focused Exam Vital Signs: Vital Signs Temp Pulse Resp BP Pulse Ox 09/24/19 12:32 36.8 C 73 16 181/96 H 100 Date Exam was Performed: 09/24/19 Time Exam was Performed: 13:36 - My Orders Last 24 Hours: My Active Orders 09/24/19 12:20 CULTURE URINE [RM] Stat 09/24/19 13:00 Sodium Chloride 0.9% [Normal Saline] 1,000 ml IV ASDIRECTED 09/24/19 13:22 Strain Urine [RC] ASDIRECTED - Assessment/Plan Last 24 Hours: My Active Orders 09/24/19 12:20 CULTURE URINE [RM] Stat 09/24/19 13:00 Sodium Chloride 0.9% [Normal Saline] 1,000 ml IV ASDIRECTED 09/24/19 13:22 Strain Urine [RC] ASDIRECTED
--- NOTE | 2019-09-24 13:32 | CT ---
CT abdomen and pelvis Technique: Multiple axial sections were obtained from above the dome of the diaphragm inferiorly through the pubic symphysis. Intravenous and oral contrast not utilized. Study has been performed as a ureteral stone protocol. Findings: No ureteral dilatation is seen. Very minimal 1 mm calculus is noted within the right kidney compatible with nonobstructing stone. No ureteral calculi are seen. Other findings: Visualized lung bases show nothing acute. Bilateral breast prosthesis are partially visualized. Noncontrast appearance of the liver shows no focal abnormality. Spleen appears within normal limits. Adrenal glands show no nodule. Pancreas shows no abnormality. Aorta shows no aneurysm. No retroperitoneal adenopathy is seen. Mild atherosclerotic calcification is noted within the aorta. No pelvic mass or adenopathy is appreciated. Appendix is felt to be visualized and is normal in size. No free fluid or inflammatory change is appreciated. Bone window settings were reviewed which shows no acute osseous finding. Impression: 1. Minimal 1 mm nonobstructing stone within the right kidney. No ureteral dilatation or ureteral calculi are seen. 2. Other normal findings as noted above. Nothing acute is appreciated on noncontrast CT study of the abdomen and pelvis. Diagnostic code #2 This report was dictated in MDT
[2019-09-24] MEDS ORDERED: Levofloxacin 750 MG Tab PO STA (13:45)
== END 2019-09-24 14:00 | disposition home or self-care (01) ==
LOC: JD.ED 12:07
DX: N12 Tubulo-interstitial nephritis, not specified as acute or chronic (principal); I10 Essential (primary) hypertension; E10.9 Type 1 diabetes mellitus without complications; Z87.891 Personal history of nicotine dependence; Z88.8 Allergy status to other drugs, medicaments and biological substances; Z88.5 Allergy status to narcotic agent; Z91.041 Radiographic dye allergy status; Z79.82 Long term (current) use of aspirin; Z79.899 Other long term (current) drug therapy
CPT/HCPCS: 74176; 81001; 87086; 87088; 87184; 87186; 96374; 96375; 99284; A9270; J1170; J1885; J2405; J7030